=== PATIENT | male | born 1990 | race Caucasian/White ===

== ENCOUNTER 2023-12-12 12:16 | Emergency (ER) | payer MEDICAID ==
[~2023-12-12] VITALS: Ht 175.3 cm; Wt 63.5 kg
[2023-12-12 12:24] VITALS: TEMP 98.6
[2023-12-12] MEDS ORDERED: IBUP-1957 PO (13:52)
[2023-12-12 14:47] VITALS: BP 128/76; O2SAT 99
== END 2023-12-12 14:40 | disposition home or self-care (01) ==
LOC: ER 12:25
DX: S62.102A Fracture of unspecified carpal bone, left wrist, initial encounter for closed fracture (principal); Z79.1 Long term (current) use of non-steroidal anti-inflammatories (NSAID); W18.39XA Other fall on same level, initial encounter; Y93.89 Activity, other specified; Y92.89 Other specified places as the place of occurrence of the external cause; Y99.8 Other external cause status
CPT/HCPCS: 73110